=== PATIENT | female | born 1970 | race Caucasian/White ===

== ENCOUNTER 2019-01-02 12:08 | Outpatient (CLI) | payer BC, OTHER | END 2019-01-02 14:08 | disposition home or self-care (01) | LOC: SRD 12:08 | DX: R07.9 Chest pain, unspecified (principal); R05 Cough | CPT/HCPCS: 71046-TC ==

== ENCOUNTER 2021-02-12 06:56 | Emergency (ER) | payer BC, OTHER ==
[~2021-02-12] VITALS: Ht 172.7 cm; Wt 64.9 kg
[2021-02-12 06:56] VITALS: BP_SYST 131
[2021-02-12] MEDS ORDERED: ONDANSETRON HCL 4 MG/2 ML VIAL IVP ONE (07:30)
[2021-02-12] MEDS ORDERED: MORPHINE 4 MG INJ. 4 MG/ML VIAL IVP ONE (07:30)
[2021-02-12] MEDS ORDERED: NACL 0.9% 1,000 ML IV ONE (07:30)
[2021-02-12 07:36] LABS: BASOPHILS % (AUTO) 0.4 % (0.0-2.0); EOSINOPHILS % (AUTO) 0.2 % (0.0-4.0); HEMATOCRIT 35.7 % (36-48); HEMOGLOBIN 11.6 g/dL (12.0-16.0); LYMPHOCYTES # (AUTO) 0.8 K/uL (1.0-5.5); LYMPHOCYTES % (AUTO) 6.5 % (20.5-51.5); MEAN CORPUSCULAR HEMOGLOBIN 26 pg (27-31); MEAN CORPUSCULAR HGB CONC 33 % (32-36); MEAN CORPUSCULAR VOLUME 79 fL (79.0-98.0); MONOCYTES # (AUTO) 0.6 K/uL (0.0-1.0); MONOCYTES % (AUTO) 4.9 % (1.7-9.3); NEUTROPHILS # (AUTO) 10.8 K/uL (1.8-7.7); PLATELET COUNT (AUTO) 299 K/uL (130-430); RED BLOOD CELL COUNT(AUTO) 4.54 MIL/uL (4.2-6.2); RED CELL DISTRIBUTION WIDTH 15.3 % (9.0-15.0); WHITE BLOOD COUNT (AUTO) 12.2 K/uL (4.8-10.8)
[2021-02-12 07:52] LABS: CALCIUM 8.7 mg/dL (8.4-11.0); CREATININE 1.37 mg/dL (0.55-1.30); POTASSIUM 3.6 mmol/L (3.5-5.1)
[2021-02-12 07:58] LABS: ALBUMIN 3.9 g/dL (3.4-4.8); TOTAL BILIRUBIN 0.5 mg/dL (0.0-1.0)
[2021-02-12 08:03] LABS: BILIRUBIN,URINE NEGATIVE (NEGATIVE); BLOOD, URINE 3+ (NEGATIVE); COLOR,URINE YELLOW (YELLOW); GLUCOSE,URINE NEGATIVE (NEGATIVE); KETONES,URINE TRACE (NEGATIVE); LEUKOCYTE ESTERASE ,URINE NEGATIVE (NEGATIVE); NITRITE, URINE NEGATIVE (NEGATIVE); PH,URINE 6.5 (5.0-8.0); PROTEIN URINE NEGATIVE (NEGATIVE); UROBILINOGEN,URINE 0.2 (0.2-1.0)
[2021-02-12 08:06] LABS: CLARITY/URINE HAZY (CLEAR)
[2021-02-12 08:28] LABS: BACTERIA,URINE MODERATE /HPF (None Seen); MUCUS,URINE 1+ /LPF (None Seen)
[2021-02-12] MEDS ORDERED: KETOROLAC TROMETHAMINE 30 MG VIAL IVP ONE (08:30)
[2021-02-12] MEDS ORDERED: ALBMDI INH (09:48)
[2021-02-12] MEDS ORDERED: TOPI50TA PO (09:48)
[2021-02-12] MEDS ORDERED: ALPR0.5T PO (09:48)
[2021-02-12] MEDS ORDERED: HYDR-3927 PO (10:50)
[2021-02-12] MEDS ORDERED: IBUP-1969 PO (10:50)
[2021-02-12] MEDS ORDERED: HYDR-3917 PO (10:59)
[2021-02-12 11:09] VITALS: BP_SYST 138
== END 2021-02-12 11:10 | disposition home or self-care (01) ==
LOC: SED 06:56
DX: N20.0 Calculus of kidney (principal); R11.2 Nausea with vomiting, unspecified; Z79.899 Other long term (current) drug therapy
CPT/HCPCS: 36415; 74177; 76376; 80053; 81000; 81025; 83605; 83690; 85025; 87086; 96361; 96374; 96375; 99284; J1885; J2270; J2405; J7030; Q9967

== ENCOUNTER 2022-06-09 02:28 | Emergency (ER) | payer BC, OTHER ==
[~2022-06-09] VITALS: Ht 172.7 cm; Wt 72.6 kg
[~2022-06-09 02:28] MED LIST: ALBMDI INH; ALPR0.5T PO; HYDR-3917 PO; IBUP-1969 PO; TOPI50TA PO
[2022-06-09 02:39] VITALS: BP_SYST 142
--- NOTE | 2022-06-09 02:39 | NUR ---
Patient came in to the emergency department with complains of rt flank pain radiating to her abdomen since 1999 hrs. Reports nausea, no vomiting. Patient states she had a dark colored urine yesterday afternoon at 1700 hrs. She took Xanax trying to go to sleep however she is in so much pain 10/10 PS and cannot keep still. Patient with history of left kidney stones a year ago. Shes also has a history of IBS, asthma, anxiety. No other remarkable symptoms noted. Breathins easy, respirations even unlabored, afebrile, no CP, no headache, dizziness. Patient provided with urine cup for urine sample collection. ER to evaluate and treat/
[2022-06-09] MEDS ORDERED: NORT25CA5 PO (02:48)
--- NOTE | 2022-06-09 02:49 | NUR ---
ER examining patient.
[2022-06-09] MEDS ORDERED: KETOROLAC TROMETHAMINE 30 MG VIAL IVP ONE (03:15)
[2022-06-09] MEDS ORDERED: NACL 0.9% 1,000 ML IV ONE (03:15)
--- NOTE | 2022-06-09 03:23 | NUR ---
PT STATES SHE HAD A HX OF LEFT SIDE KIDNEY STONES
[2022-06-09] MEDS ORDERED: KETOROLAC TROMETHAMINE 30 MG VIAL ONE (04:18)
[2022-06-09 04:25] LABS: BASOPHILS # (AUTO) 0.1 K/uL (0.0-0.2); EOSINOPHILS # (AUTO) 0.2 K/uL (0.0-0.4); HEMATOCRIT 38.7 % (36-48); LYMPHOCYTES # (AUTO) 1.2 K/uL (1.0-5.5); LYMPHOCYTES % (AUTO) 14.8 % (20.5-51.5); MEAN CORPUSCULAR VOLUME 77 fL (79.0-98.0); MONOCYTES # (AUTO) 0.5 K/uL (0.0-1.0); MONOCYTES % (AUTO) 6.2 % (1.7-9.3); NEUTROPHILS # (AUTO) 6.1 K/uL (1.8-7.7); PLATELET COUNT (AUTO) 294 K/uL (130-430); RED BLOOD CELL COUNT(AUTO) 5.03 MIL/uL (4.2-6.2); RED CELL DISTRIBUTION WIDTH 14.4 % (9.0-15.0); WHITE BLOOD COUNT (AUTO) 8.1 K/uL (4.8-10.8)
[2022-06-09 04:27] LABS: CALCIUM 9.3 mg/dL (8.4-11.0); CREATININE 0.98 mg/dL (0.55-1.30); POTASSIUM 3.4 mmol/L (3.5-5.1)
[2022-06-09 04:32] LABS: ALBUMIN 4.2 g/dL (3.4-4.8); TOTAL BILIRUBIN 0.4 mg/dL (0.0-1.0)
[2022-06-09 04:37] LABS: BILIRUBIN,URINE 1+ (NEGATIVE); BLOOD, URINE 3+ (NEGATIVE); CLARITY/URINE SL CLOUDY (CLEAR); COLOR,URINE BROWN (YELLOW); GLUCOSE,URINE NEGATIVE (NEGATIVE); KETONES,URINE NEGATIVE (NEGATIVE); LEUKOCYTE ESTERASE ,URINE NEGATIVE (NEGATIVE); NITRITE, URINE NEGATIVE (NEGATIVE); PROTEIN URINE 1+ (NEGATIVE); UROBILINOGEN,URINE 0.2 (0.2-1.0)
[2022-06-09 04:45] LABS: RBC,URINE 80-100 /HPF (0-3); WBC,URINE 0-3 /HPF (0-3)
[2022-06-09 04:46] LABS: BACTERIA,URINE MODERATE /HPF (None Seen)
[2022-06-09 04:47] LABS: YEAST,URINE Few /HPF (None Seen)
[2022-06-09 04:48] LABS: MUCUS,URINE 2+ /LPF (None Seen)
--- NOTE | 2022-06-09 05:11 | NUR ---
NS IVF completed.
[2022-06-09] MEDS ORDERED: TRAM50TA PO (05:44)
[2022-06-09] MEDS ORDERED: FLUCONAZOLE 100 MG TABLET (DIFLUCAN) PO ONE (05:45)
[2022-06-09 05:56] VITALS: BP_SYST 143
--- NOTE | 2022-06-09 05:57 | NUR ---
Patient given written and verbal discharge instructions and verbalizes understanding. ER MD Gardner discussed with patient the results and treatment provided. Patient in stable condition. ID arm band removed. IV catheter removed intact and dressing applied, no active bleeding. Rx of Tramadol sent to pharmacy of choice. Patient educated on pain management and to follow up with PMD. Pain Scale 0/10 upon discharge. Opportunity for questions provided and answered. Medication side effect fact sheet provided.
== END 2022-06-09 05:56 | disposition home or self-care (01) ==
LOC: SED 02:28
DX: N23 Unspecified renal colic (principal); N20.0 Calculus of kidney; Z79.899 Other long term (current) drug therapy
CPT/HCPCS: 99284; 74176; 96374; 96361; 80053; 81000; 85025; 36415; 76376; 81025; J1885; J7030

== ENCOUNTER 2022-09-28 11:28 | Emergency (ER) | payer BC ==
[~2022-09-28] VITALS: Ht 172.7 cm; Wt 69.4 kg
[~2022-09-28 11:28] MED LIST changes: -HYDR-3917 PO; -IBUP-1969 PO; +NORT25CA5 PO; -TOPI50TA PO; +TRAM50TA PO
[2022-09-28 11:45] VITALS: BP_SYST 116
--- NOTE | 2022-09-28 12:21 | NUR ---
Placed in room 04 . Placed on monitoring tech, blood pressure machine and pulse oximeter. To gown for exam. Side rails up. Report given to MARGIE MARQUIS.
--- NOTE | 2022-09-28 12:25 | NUR ---
Pt brought by family,A&Ox4, pt presents to ER with black stool since justine, nausea and abdominal pain, pt states she has Hx of GI bleed, skin pink and warm, cap refill<3, VSS, respirations even and unlabored, will cont to monitor.
--- NOTE | 2022-09-28 12:45 | NUR ---
Dr Frankel evalutiating patient at bedside
[2022-09-28 12:49] LABS: BASOPHILS # (AUTO) 0.1 K/uL (0.0-0.2); BASOPHILS % (AUTO) 0.7 % (0.0-2.0); HEMATOCRIT 29.2 % (36-48); HEMOGLOBIN 9.3 g/dL (12.0-16.0); LYMPHOCYTES # (AUTO) 1.2 K/uL (1.0-5.5); LYMPHOCYTES % (AUTO) 13.1 % (20.5-51.5); MEAN CORPUSCULAR HEMOGLOBIN 25 pg (27-31); MEAN CORPUSCULAR HGB CONC 32 % (32-36); MEAN CORPUSCULAR VOLUME 78 fL (79.0-98.0); MONOCYTES # (AUTO) 0.4 K/uL (0.0-1.0); MONOCYTES % (AUTO) 4.4 % (1.7-9.3); NEUTROPHILS # (AUTO) 7.7 K/uL (1.8-7.7); NEUTROPHILS % (AUTO) 81.8 % (40.0-70.0); PLATELET COUNT (AUTO) 361 K/uL (130-430); RED BLOOD CELL COUNT(AUTO) 3.72 MIL/uL (4.2-6.2); RED CELL DISTRIBUTION WIDTH 15.3 % (9.0-15.0); WHITE BLOOD COUNT (AUTO) 9.4 K/uL (4.8-10.8)
[2022-09-28 13:07] LABS: CALCIUM 9.1 mg/dL (8.4-11.0); CREATININE 0.73 mg/dL (0.55-1.30)
[2022-09-28 13:11] LABS: PROTHROMBIN TIME 9.7 SECS (9.5-12.5)
[2022-09-28 13:22] LABS: ALBUMIN 3.8 g/dL (3.4-4.8); TOTAL BILIRUBIN 0.3 mg/dL (0.0-1.0)
[2022-09-28] MEDS ORDERED: OMEP20CA15 PO (14:13)
[2022-09-28] MEDS ORDERED: TRAM50TA2 PO (14:13)
[2022-09-28] MEDS ORDERED: PANTOPRAZOLE SODIUM 40 MG TAB PO ONE (14:15)
[2022-09-28 15:20] VITALS: BP_SYST 116
--- NOTE | 2022-09-28 16:36 | NUR ---
Patient given written and verbal discharge instructions and verbalizes understanding. ER MD discussed with patient the results and treatment provided. Patient in stable condition. ID arm band removed. IV catheter removed intact and dressing applied, no active bleeding. Rx of Omeprazole and Tramadol given. Patient educated on pain management and to follow up with PMD. Pain Scale 0/10. Opportunity for questions provided and answered. Medication side effect fact sheet provided.
[2022-09-29] MEDS ORDERED: LEVO25TA7 PO (20:02)
== END 2022-09-28 15:20 | disposition home or self-care (01) ==
LOC: SED 11:28
DX: K92.2 Gastrointestinal hemorrhage, unspecified (principal); R53.1 Weakness; R42 Dizziness and giddiness; Z88.2 Allergy status to sulfonamides; Z91.040 Latex allergy status; Z79.899 Other long term (current) drug therapy; Z20.822 Contact with and (suspected) exposure to COVID-19
CPT/HCPCS: 36415; 76376; 80053; 81025; 82150; 83605; 83690; 85025; 85610-TC; 85730-TC; 86886; 86900; 86901; 99284

== ENCOUNTER 2022-09-29 13:59 | Inpatient (IN) | payer BC ==
[~2022-09-29] VITALS: Ht 172.7 cm; Wt 68.0 kg
[~2022-09-29 13:59] MED LIST changes: +OMEP20CA15 PO; +TRAM50TA2 PO
[2022-09-29 14:15] VITALS: BP_SYST 107
[2022-09-29 14:51] LABS: BASOPHILS # (AUTO) 0.1 K/uL (0.0-0.2); BASOPHILS % (AUTO) 1.1 % (0.0-2.0); EOSINOPHILS # (AUTO) 0.1 K/uL (0.0-0.4); EOSINOPHILS % (AUTO) 1.3 % (0.0-4.0); HEMATOCRIT 25.2 % (36-48); HEMOGLOBIN 8.1 g/dL (12.0-16.0); LYMPHOCYTES # (AUTO) 1.6 K/uL (1.0-5.5); LYMPHOCYTES % (AUTO) 28.9 % (20.5-51.5); MEAN CORPUSCULAR HEMOGLOBIN 26 pg (27-31); MEAN CORPUSCULAR HGB CONC 32 % (32-36); MEAN CORPUSCULAR VOLUME 79 fL (79.0-98.0); MONOCYTES # (AUTO) 0.4 K/uL (0.0-1.0); MONOCYTES % (AUTO) 6.8 % (1.7-9.3); NEUTROPHILS # (AUTO) 3.5 K/uL (1.8-7.7); NEUTROPHILS % (AUTO) 61.9 % (40.0-70.0); PLATELET COUNT (AUTO) 323 K/uL (130-430); RED BLOOD CELL COUNT(AUTO) 3.19 MIL/uL (4.2-6.2); RED CELL DISTRIBUTION WIDTH 15.7 % (9.0-15.0); WHITE BLOOD COUNT (AUTO) 5.6 K/uL (4.8-10.8)
[2022-09-29 15:09] LABS: CALCIUM 8.5 mg/dL (8.4-11.0); CREATININE 0.84 mg/dL (0.55-1.30)
[2022-09-29 15:14] LABS: ALBUMIN 3.5 g/dL (3.4-4.8); TOTAL BILIRUBIN 0.2 mg/dL (0.0-1.0)
--- NOTE | 2022-09-29 16:38 | NUR ---
PT IN ROOM 7 pt presented back to ER FROM YESTERDAY ACCORDING TO DR ORDERS TO RECHECK HEMOGLOBIN LEVEL. PT VSS 88HR 122/97MMHG 99%SPO2 ROOM AIR. 14RR. PT DOES NOT COMPLAIN OF PAIN, NO SOB PT IN GOWN RESTING COMFORTABLY
--- NOTE | 2022-09-29 16:50 | NUR ---
Dr Frankel evaluating patient at bedside
[2022-09-29] MEDS ORDERED: PANTOPRAZOLE SODIUM 80 MG in NS 100 ML IVP ONE (17:00)
--- NOTE | 2022-09-29 17:02 | NUR ---
Admit bed requested Patient will be admitted to care of Dr Francisco.. Admitted to Tele unit. Diagnosis Acute blood loss, anemia Inpatient (Yes or No) Yes Observation (Yes or No) No Orientation concerns or request close to nursing station (Yes or No) No Covid Status negative On vent or bipap N/A Isolation requirements N/A Needs a sitter N/A From Home (Yes or if No enter name of facility) YES Requires Dialysis (Yes or No) N/A Med Rec Completed (Yes of No)
--- NOTE | 2022-09-29 18:20 | NUR ---
Pt A&Ox4, VSS, respirations even and unlabored
[2022-09-29] MEDS: PANTOPRAZOLE SODIUM 40 MG in NS 50 ML IV SCH ×2 (18:26→23:35)
[2022-09-29] MEDS ORDERED: ONDANSETRON HCL 4 MG/2 ML VIAL IVP PRN (18:30)
[2022-09-29] MEDS ORDERED: ACETAMINOPHEN 325 MG TABLET PO PRN (18:30)
[2022-09-29 18:34] LABS: INR 0.9 (0.8-1.2); PROTHROMBIN TIME 9.5 SECS (9.5-12.5)
--- NOTE | 2022-09-29 19:45 | NUR ---
ADMIT NOTE Received pt from ER to the floor with a diagnosis of GI bleed. Admission process initiated. Patient oriented to pain management, safety and call light-teach back done.
--- NOTE | 2022-09-29 20:00 | NUR ---
Patient will be admitted to care of [facility]. Admitted to Tele unit. Will go to room 109C. Complete and up to date summary report printed. SBAR report to be given at bedside with opportunity for questions.
[2022-09-29] MEDS ORDERED: LEVO25TA7 PO (20:02)
[2022-09-29 21:00] VITALS: BP_SYST 115
[2022-09-29] MEDS: D5LR 1,000 ML IV SCH (21:09)
--- NOTE | 2022-09-29 21:10 | NUR ---
D5LR @ 100mL/hr and Protonix drip at 10mL/hr started.
--- NOTE | 2022-09-29 21:53 | NUR ---
CONSULTATION PAGED/CALLED Reason for Consultation: GI BLEED Person Who was Notified:VICKY Consulting Physician: EDGAR Gunn Specialty: Ordering Physician: ANNITA Addendum: 09/29/22 at 2154 by Edel Leonard CNA DOCTOR ESPINOSA IS CLAIMS ADJUSTOR
[2022-09-29] MEDS: TEMAZEPAM 15 MG CAPSULE PO SCH (23:31)
[2022-09-29 23:36] VITALS: BP_SYST 115
[2022-09-30 00:25] VITALS: BP_SYST 112
[2022-09-30] MEDS: PANTOPRAZOLE SODIUM 40 MG in NS 50 ML IV SCH ×2 (04:50→08:21)
[2022-09-30] MEDS: D5LR 1,000 ML IV SCH ×3 (06:41→20:38)
[2022-09-30] MEDS ORDERED: RIZA-4 PO (06:58)
[2022-09-30 07:09] LABS: CALCIUM 8.2 mg/dL (8.4-11.0); CREATININE 0.57 mg/dL (0.55-1.30)
[2022-09-30 07:16] LABS: BASOPHILS % (AUTO) 1.1 % (0.0-2.0); EOSINOPHILS # (AUTO) 0.1 K/uL (0.0-0.4); EOSINOPHILS % (AUTO) 2.2 % (0.0-4.0); HEMATOCRIT 23.9 % (36-48); HEMOGLOBIN 7.7 g/dL (12.0-16.0); LYMPHOCYTES # (AUTO) 1.3 K/uL (1.0-5.5); LYMPHOCYTES % (AUTO) 30.3 % (20.5-51.5); MEAN CORPUSCULAR HEMOGLOBIN 25 pg (27-31); MEAN CORPUSCULAR HGB CONC 32 % (32-36); MEAN CORPUSCULAR VOLUME 79 fL (79.0-98.0); MONOCYTES # (AUTO) 0.3 K/uL (0.0-1.0); MONOCYTES % (AUTO) 7.6 % (1.7-9.3); NEUTROPHILS # (AUTO) 2.6 K/uL (1.8-7.7); NEUTROPHILS % (AUTO) 58.8 % (40.0-70.0); PLATELET COUNT (AUTO) 271 K/uL (130-430); RED BLOOD CELL COUNT(AUTO) 3.03 MIL/uL (4.2-6.2); RED CELL DISTRIBUTION WIDTH 15.6 % (9.0-15.0); WHITE BLOOD COUNT (AUTO) 4.4 K/uL (4.8-10.8)
--- NOTE | 2022-09-30 07:30 | NUR ---
CLOSING Patient resting in bed, no distress noted. Protonix drip and IV fluids infusing as ordered. Ambulated to bathroom with steady assist. Patient had two black bowel movements during night. No nausea or vomiting. Patient stated she was lightheaded when she came to the hospital, no lightheadedness or dizziness during night. Patient states she has chronic headaches/migraines and takes Excedrin and Maxalt 10mg as needed at home. Endorsed to oncoming nurse. Safety precautions in place.
[2022-09-30] MEDS ORDERED: MEPERIDINE HCL/PF 25 MG/ML DISP.SYRIN ONE (09:15)
[2022-09-30] MEDS ORDERED: MIDAZOLAM HCL 5 MG/5 ML VIAL ONE (09:15)
[2022-09-30 11:20] VITALS: BP_SYST 103
[2022-09-30] MEDS ORDERED: MULTIVITAMINS TAB 1 TABLET PO ONE (12:00)
[2022-09-30] MEDS ORDERED: POTASSIUM CHLORIDE 20 MEQ TAB.PRT.SR PO ONE (12:00)
[2022-09-30 12:20] LABS: TOTAL IRON BIND. CAPACITY 385 ug/dL (250-450)
[2022-09-30] MEDS ORDERED: SOD FERRIC GLUC COMPLEX/SUC 125 MG in NS 100 ML IV SCH (13:15)
[2022-09-30] MEDS: ONDANSETRON HCL 4 MG/2 ML VIAL IVP PRN ×2 (14:22→20:47)
[2022-09-30] MEDS: SOD FERRIC GLUC COMPLEX/SUC 125 MG in NS 100 ML IV SCH (14:23)
[2022-09-30] MEDS ORDERED: RIZATRIPTAN BENZOATE 10 MG PO ONE (15:00)
[2022-09-30] MEDS ORDERED: HYDROmorphone 1 MG/ML INJ. CARTRIDGE IVP ONE (18:15)
[2022-09-30] MEDS ORDERED: NALOXONE HCL 0.4 MG/ML AMP (NARCAN) IVP PRN ×2 (18:15)
[2022-09-30] MEDS ORDERED: METOCLOPRAMIDE HCL 10 MG/2 ML VIAL IVP ONE (18:15)
[2022-09-30 20:00] VITALS: BP_SYST 115
[2022-09-30] MEDS: TEMAZEPAM 15 MG CAPSULE PO SCH (20:37)
[2022-09-30] MEDS: MULTIVITAMINS TAB 1 TABLET PO SCH (20:37)
[2022-09-30] MEDS: PANTOPRAZOLE SODIUM 40 MG/VIAL (PROTONIX) IVP SCH (20:59)
[2022-09-30] MEDS ORDERED: ZOLPIDEM TARTRATE 5 MG TABLET PO SCH (21:00)
[2022-09-30] MEDS: HYDROmorphone 1 MG/ML INJ. CARTRIDGE IVP PRN (23:14)
[2022-10-01] VITALS: BP_SYST 104
[2022-10-01] MEDS: HYDROmorphone 1 MG/ML INJ. CARTRIDGE IVP PRN ×5 (03:54→21:40)
[2022-10-01] MEDS: ONDANSETRON HCL 4 MG/2 ML VIAL IVP PRN ×2 (03:57→13:38)
[2022-10-01 04:00] VITALS: BP_SYST 112
--- NOTE | 2022-10-01 06:06 | NUR ---
CONSULTATION PAGED/CALLED Reason for Consultation: MIGRAINE H/A Person Who was Notified: VIA TEXT Consulting Physician: [employer] Specialty: Ordering Physician:
[2022-10-01 07:05] LABS: ALBUMIN 3.1 g/dL (3.4-4.8); CALCIUM 8.5 mg/dL (8.4-11.0); CREATININE 0.68 mg/dL (0.55-1.30); TOTAL BILIRUBIN 0.2 mg/dL (0.0-1.0)
[2022-10-01 07:07] LABS: BASOPHILS % (AUTO) 0.6 % (0.0-2.0); EOSINOPHILS # (AUTO) 0.1 K/uL (0.0-0.4); EOSINOPHILS % (AUTO) 1.6 % (0.0-4.0); HEMATOCRIT 23.2 % (36-48); HEMOGLOBIN 7.4 g/dL (12.0-16.0); LYMPHOCYTES # (AUTO) 1.3 K/uL (1.0-5.5); MEAN CORPUSCULAR HEMOGLOBIN 26 pg (27-31); MEAN CORPUSCULAR HGB CONC 32 % (32-36); MEAN CORPUSCULAR VOLUME 80 fL (79.0-98.0); MONOCYTES # (AUTO) 0.4 K/uL (0.0-1.0); MONOCYTES % (AUTO) 8.5 % (1.7-9.3); NEUTROPHILS # (AUTO) 3.2 K/uL (1.8-7.7); NEUTROPHILS % (AUTO) 63.3 % (40.0-70.0); PLATELET COUNT (AUTO) 292 K/uL (130-430); RED BLOOD CELL COUNT(AUTO) 2.91 MIL/uL (4.2-6.2); RED CELL DISTRIBUTION WIDTH 15.5 % (9.0-15.0); RETICULOCYTE COUNT 3.3 % (0.5-1.5)
[2022-10-01] MEDS ORDERED: SUMAtriptan SUCCINATE 6 MG/0.5 ML VIAL SUBCUT ONE (07:45)
[2022-10-01 08:01] VITALS: BP_SYST 115
[2022-10-01] MEDS: TOPIRAMATE 25 MG TABLET(TOPAMAX) PO SCH ×2 (09:21→21:39)
[2022-10-01] MEDS: PANTOPRAZOLE SODIUM 40 MG/VIAL (PROTONIX) IVP SCH ×2 (09:22→21:37)
[2022-10-01] MEDS: MULTIVITAMINS TAB 1 TABLET PO SCH ×2 (09:22→21:42)
[2022-10-01] MEDS: D5LR 1,000 ML IV SCH (09:23)
[2022-10-01] MEDS: METOCLOPRAMIDE HCL 10 MG/2 ML VIAL IVP PRN ×2 (09:36→17:51)
[2022-10-01 11:37] VITALS: BP_SYST 106
[2022-10-01] MEDS: SOD FERRIC GLUC COMPLEX/SUC 125 MG in NS 100 ML IV SCH (13:40)
--- NOTE | 2022-10-01 13:59 | NUR ---
ATTENDING MD DR ARIZA WAS CALLED RE: K OF 3.0. SPOKE TO WAYNE.
[2022-10-01] MEDS ORDERED: POTASSIUM CHLORIDE 20 MEQ TAB.PRT.SR PO ONE (14:30)
[2022-10-01 14:53] VITALS: BP_SYST 118
[2022-10-01] MEDS ORDERED: MAGNESIUM OXIDE 400 MG TABLET PO ONE (16:30)
[2022-10-01 20:00] VITALS: BP_SYST 104
[2022-10-01] MEDS: POTASSIUM CHLORIDE 20 MEQ TAB.PRT.SR PO SCH (21:34)
[2022-10-01] MEDS: TEMAZEPAM 15 MG CAPSULE PO SCH (21:36)
[2022-10-01] MEDS: MAGNESIUM OXIDE 400 MG TABLET PO SCH (21:43)
[2022-10-02 00:32] VITALS: BP_SYST 100
--- NOTE | 2022-10-02 07:20 | NUR ---
DR. MAIER CLEARED PT FROM NEURO STANDPOINT FOR DISCHARGE HOME. PT TO FOLLOW-UP W PRIMARY CARE PHYSICIAN IN TWO WEEKS.
[2022-10-02 08:00] VITALS: BP_SYST 110
--- NOTE | 2022-10-02 08:00 | NUR ---
Miss Stevens has been assessed as indicated. She has been noted to be both pleasant and cooperative. She denies pain and she states that she has had a BM with no noted blood. She is resting quietly and hopes to be DC to home today
[2022-10-02] MEDS: POTASSIUM CHLORIDE 20 MEQ TAB.PRT.SR PO SCH (10:59)
[2022-10-02] MEDS: TOPIRAMATE 25 MG TABLET(TOPAMAX) PO SCH (10:59)
[2022-10-02] MEDS: PANTOPRAZOLE SODIUM 40 MG/VIAL (PROTONIX) IVP SCH (11:00)
[2022-10-02] MEDS: MULTIVITAMINS TAB 1 TABLET PO SCH (11:00)
[2022-10-02] MEDS: MAGNESIUM OXIDE 400 MG TABLET PO SCH (11:00)
[2022-10-02 11:29] VITALS: BP_SYST 116
[2022-10-02] MEDS ORDERED: PRO40 PO (13:12)
[2022-10-02] MEDS: SOD FERRIC GLUC COMPLEX/SUC 125 MG in NS 100 ML IV SCH (13:12)
[2022-10-02] MEDS ORDERED: MULT-1117 PO (13:15)
[2022-10-02] MEDS: D5LR 1,000 ML IV SCH (13:15)
[2022-10-02] MEDS ORDERED: POTA-197 PO (13:16)
[2022-10-02 14:35] VITALS: BP_SYST 116
--- NOTE | 2022-10-02 15:00 | NUR ---
Miss Stevens has been DC to home IV access has been removed. DC instructions have been reviewed. She has been made aware of the need to schedule follow up appointments with GI NEURO and PCP. She has been provided with the numbers and addresses for Ketan Coffman and Dr. Nair she states that she would like to follow up with their offices. she expressed the desire to get copies of exams and labs. she was informed on how to do so. She walked to the [facility] without staff with her mother at her side to dc home. IV access was removed. she was driven home in a private vehicle by her mother.
== END 2022-10-02 15:00 | disposition home or self-care (01) | DRG 378 ==
LOC: SED 13:59 → OBSVTOIN 16:54 → STU 16:54 → SMU 09-30 15:54
PROVIDERS: ADMIT Internal Medicine; ATTEND Internal Medicine
PROC: 0DB78ZX Excision of Stomach, Pylorus, Via Natural or Artificial Opening Endoscopic, Diagnostic (ICD-10-PCS; principal; 2022-09-30 09:15)
DX: K25.4 Chronic or unspecified gastric ulcer with hemorrhage (principal); D62 Acute posthemorrhagic anemia; E44.1 Mild protein-calorie malnutrition; J45.909 Unspecified asthma, uncomplicated; Z20.822 Contact with and (suspected) exposure to COVID-19; G43.909 Migraine, unspecified, not intractable, without status migrainosus; E87.6 Hypokalemia; K29.70 Gastritis, unspecified, without bleeding; T39.395A Adverse effect of other nonsteroidal anti-inflammatory drugs [NSAID], initial encounter; Z88.2 Allergy status to sulfonamides; Z91.040 Latex allergy status; Z87.11 Personal history of peptic ulcer disease; Z68.22 Body mass index [BMI] 22.0-22.9, adult; Y92.89 Other specified places as the place of occurrence of the external cause
CPT/HCPCS: 36415; 43239; 70551; 80048; 80053; 83540; 83550; 83690; 85025; 85044; 85610-TC; 85730-TC; 86308-TC; 86886; 86900; 86901; 86920; 87081; 88305; 88312; 88313; 96365; 99285; C9113; G0378; J1170; J2175; J2250; J2405; J2765; J2916; J3030; J7120